=== PATIENT | male | born 1960 | race Two or more races ===

== ENCOUNTER → 2016-04-30 | Outpatient (CLI) | payer MEDICARE ==
[~2016-04-30] MED LIST: PROTONIX PO
--- NOTE | ~2016-04-30 | US5 ---
[facility] A Service of [facility] RADIOLOGY TEXT RESULTS PATIENT: ERNESTO KAUR LOCATION: [facility] : 60 UNIT #: [id number] AGE: [address]: COLT MURPHY SEX: M ORDER DR: [id number] [address] [address] [id number] O MR#: [id number] Acc #: [id number] NAME: ERNESTO KAUR : 1960 SEX: M STUDY DATE/TIME: 04/30/2016 8:56 UNIT: CGUS ROOM: STUDY DESCRIPTION: US Abdominal Complete Attending Physician: Colt Murphy Aprn Ordering Physician: Physician Non-Staff Primary Care Physician: Adriane Primary Care Physician MEDICAL IMAGING REPORT This report is preliminary unless electronic signature is present EXAM Abdominal ultrasound INDICATIONS Hepatitis C. Observation for cirrhosis and hepatocellular carcinoma. PROCEDURE Solomon-scale and Doppler imaging of the abdomen. COMPARISON STUDIES 10/31/15 FINDINGS Pancreas is not well seen but visualized portions are unremarkable. Submitted images of the abdominal aorta and vena cava unremarkable. The liver has coarsened echotexture and suspicion for surface nodularity. There is a hypoechoic region in the central liver. This area was not clearly seen on the prior. The liver measures 14.4 cm in length. Right kidney measures 11 cm. Unremarkable gallbladder. Common duct measures 2 mm. Left kidney measures 12 cm. No hydronephrosis. Spleen enlarged measuring 15.5 cm. IMPRESSION 1. Cirrhosis. Splenomegaly. 2. Masslike hypoechoic region in the central liver not clearly seen on the previous ultrasound. Cannot exclude a true liver mass and this should be evaluated with either abdominal MRI or liver protocol CT. Dictated by... Harvey Sarmiento M.D. THIS IS AN ELECTRONICALLY VERIFIED REPORT [facility] A Service of [facility] / [facility] RADIOLOGY TEXT RESULTS PATIENT: ERNESTO KAUR LOCATION: [facility] : 60 UNIT #: [id number] AGE: [address]: COLT MURPHY SEX: M ORDER DR: Harvey Sarmiento M.D. at 05/01/2016 10:02 AM [place] TD: 04/30/2016 14:18 JOB #: [id number] MEDICAL IMAGING REPORT Page 1 of 1 COPY
== END | disposition home or self-care (01) ==
LOC: CGUS 07:53
DX: B19.20 Unspecified viral hepatitis C without hepatic coma (principal); K74.60 Unspecified cirrhosis of liver; R16.1 Splenomegaly, not elsewhere classified
CPT/HCPCS: 76700

== ENCOUNTER → 2016-05-08 | Outpatient (CLI) | payer MEDICARE ==
--- NOTE | ~2016-05-08 | MR2 ---
[facility] A Service of [facility] RADIOLOGY TEXT RESULTS PATIENT: ERNESTO KAUR LOCATION: [facility] : 60 UNIT #: [id number] AGE: [address]: COLT MURPHY SEX: M ORDER DR: [id number] [address] [address] [id number] O MR#: [id number] Acc #: [id number] NAME: ERNESTO KAUR : 1960 SEX: M STUDY DATE/TIME: 05/08/2016 8:25 UNIT: [facility] ROOM: STUDY DESCRIPTION: MR Abdomen WWo Cont Attending Physician: Colt Murphy Aprn Referring Physician: Colt Murphy Aprn Ordering Physician: Physician Non-Staff Primary Care Physician: [facility] REPORT This report is preliminary unless electronic signature is present. EXAM MRI abdomen with and without contrast INDICATION Cirrhosis. Observation for hepatocellular carcinoma. Abnormal finding on diagnostic imaging of the liver. Hypoechoic region in the liver on recent ultrasound. PROCEDURE Multiplanar, multisequence MR imaging of the abdomen prior to and following 14 mL of MultiHance. COMPARISON CT from 02/15/2015 and abdominal ultrasound from 04/30/2016 FINDINGS ABDOMEN WITHOUT CONTRAST: Cirrhotic morphology of the liver. No significant hepatic fat or iron deposition. The spleen is enlarged measuring 17.5 cm. There is no ascites. There are prominent upper abdominal varices and paraesophageal varices. Kidneys, adrenal glands, pancreas unremarkable. Mild gallbladder wall thickening without evidence for cholelithiasis is favored to be related to underlying liver disease. ABDOMEN WITH CONTRAST: No evidence for hepatocellular carcinoma. Hepatic vasculature patent. IMPRESSION 1. Cirrhosis with sequela of portal hypertension. 2. No liver mass. 3. Hepatic vasculature is patent. [facility] A Service [facility] RADIOLOGY TEXT RESULTS PATIENT: ERNESTO KAUR LOCATION: [facility] : 60 UNIT #: [id number] AGE: [address]: COLT MURPHY SEX: M ORDER DR: Dictated by... Harvey Sarmiento M.D. THIS IS AN ELECTRONICALLY VERIFIED REPORT Harvey Sarmiento M.D. at 05/09/2016 7:05 AM Felicia TD: 05/08/2016 15:18 JOB #: [id number] MRI CENTER REPORT Page 1 of 1 COPY
[2016-05-08 09:25] LABS: POC - CREATININE 0.99 mg/dL (0.64-1.27); POC - GFR >60.0 mL/min (>60)
== END | disposition home or self-care (01) ==
LOC: CMRI 07:35
PROVIDERS: Nurse Practitioner Family
DX: K74.60 Unspecified cirrhosis of liver (principal); R93.2 Abnormal findings on diagnostic imaging of liver and biliary tract
CPT/HCPCS: 74183; 82565; A9577